=== PATIENT | female | born 1945 | race Caucasian/White ===

== ENCOUNTER 2020-08-21 12:04 | Outpatient (REF) | payer MEDICARE, SELFPAY | END 2020-08-21 12:05 | disposition home or self-care (01) | LOC: HO.LAB 12:04 | PROVIDERS: PCP Internal Medicine; Visit Provider Internal Medicine | DX: Z20.828 Contact with and (suspected) exposure to other viral communicable diseases (principal) | CPT/HCPCS: 87635 ==

== ENCOUNTER 2020-09-15 11:24 | Outpatient (REF) | payer MEDICARE, SELFPAY | END 2020-09-15 11:25 | disposition home or self-care (01) | LOC: HO.LAB 11:24 | PROVIDERS: Visit Provider Internal Medicine | DX: Z20.828 Contact with and (suspected) exposure to other viral communicable diseases (principal) | CPT/HCPCS: C9803; U0003 ==

== ENCOUNTER 2020-09-24 08:27 | Outpatient (REF) | payer MEDICARE, SELFPAY | END 2020-09-24 08:28 | disposition home or self-care (01) | LOC: HO.LAB 08:27 | PROVIDERS: PCP Internal Medicine; Visit Provider Internal Medicine | DX: Z20.828 Contact with and (suspected) exposure to other viral communicable diseases (principal) | CPT/HCPCS: C9803; U0003 ==

== ENCOUNTER 2020-10-21 09:35 | Outpatient (REF) | payer MEDICARE, SELFPAY | END 2020-10-21 09:36 | disposition home or self-care (01) | LOC: HO.LAB 09:35 | PROVIDERS: Visit Provider Internal Medicine | DX: Z20.828 Contact with and (suspected) exposure to other viral communicable diseases (principal) | CPT/HCPCS: C9803; U0003 ==

== ENCOUNTER 2020-11-19 13:52 | Outpatient (REF) | payer MEDICARE, SELFPAY | END 2020-11-19 13:53 | disposition home or self-care (01) | LOC: HO.LAB 13:52 | PROVIDERS: PCP Internal Medicine; Visit Provider Internal Medicine | DX: Z20.822 Contact with and (suspected) exposure to COVID-19 (principal) | CPT/HCPCS: 36415; C9803; U0003 ==

== ENCOUNTER 2020-12-01 14:02 | Outpatient (REF) | payer MEDICARE, SELFPAY ==
--- NOTE | 2020-12-01 14:05 | MM_ITS ---
EXAMINATION: MM SCREENING DIGITAL BREAST TOMOSYNTHESIS, BILATERAL CLINICAL INFORMATION: Screening. Asymptomatic. The lifetime risk of breast cancer based on the Tyrer-Cuzick Model is 2%. COMPARISON: Mammography: 11/26/2019, 09/19/2018, 05/23/2017 TECHNIQUE: Digital breast tomosynthesis is performed in both the craniocaudal and mediolateral oblique views along with computer-aided detection (CAD). Synthesized 2D images are generated from the tomosynthesis. FINDINGS: There are scattered areas of fibroglandular density (ACR BI-RADS breast composition Category b). There are no significant masses, abnormal calcifications, or other abnormalities. Parenchymal pattern is similar to prior studies. No significant changes. MM/MM tomosynthesis screening BI IMPRESSION: No mammographic evidence of malignancy. ASSESSMENT: BI-RADS 1: Negative RECOMMENDATION: Routine annual mammography screening. This patient's information was entered into a reminder system with a target due date for their next mammogram.
== END 2020-12-01 14:03 | disposition home or self-care (01) ==
LOC: HO.MAMMO 14:02
PROVIDERS: Visit Provider Internal Medicine
DX: Z12.31 Encounter for screening mammogram for malignant neoplasm of breast (principal)
CPT/HCPCS: 77063; 77067

== ENCOUNTER 2020-12-03 10:31 | Outpatient (REF) | payer MEDICARE, SELFPAY | END 2020-12-03 10:32 | disposition home or self-care (01) | LOC: HO.LAB 10:31 | PROVIDERS: PCP Internal Medicine; Visit Provider Internal Medicine | DX: Z20.822 Contact with and (suspected) exposure to COVID-19 (principal) | CPT/HCPCS: 36415; C9803; U0003 ==

== ENCOUNTER 2020-12-18 09:54 | Outpatient (REF) | payer MEDICARE, SELFPAY | END 2020-12-18 09:55 | disposition home or self-care (01) | LOC: HO.LAB 09:54 | PROVIDERS: Visit Provider Internal Medicine | DX: Z20.822 Contact with and (suspected) exposure to COVID-19 (principal) | CPT/HCPCS: 36415; C9803; U0003; U0005 ==

== ENCOUNTER 2021-09-22 10:25 | Outpatient (REF) | payer MEDICARE, SELFPAY ==
[2021-09-22 11:11] LABS: COVID-19 Test Negative (Negative)
== END 2021-09-22 10:26 | disposition home or self-care (01) ==
LOC: HO.LAB 10:25
PROVIDERS: PCP Internal Medicine; Visit Provider Internal Medicine
DX: Z20.822 Contact with and (suspected) exposure to COVID-19 (principal)
CPT/HCPCS: 36415; 87635; C9803

== ENCOUNTER 2021-12-11 15:25 | Outpatient (REF) | payer MEDICARE, SELFPAY ==
--- NOTE | ~2021-12-11 | MM_ITS ---
EXAMINATION: MM SCREENING DIGITAL BREAST TOMOSYNTHESIS, BILATERAL CLINICAL INFORMATION: Screening. Asymptomatic. The lifetime risk of breast cancer based on the Tyrer-Cuzick Model is 2%. COMPARISON: Mammography: 12/01/2020, 11/26/2019, 09/19/2018 TECHNIQUE: Digital breast tomosynthesis is performed in both the craniocaudal and mediolateral oblique views along with computer-aided detection (CAD). Synthesized 2D images are generated from the tomosynthesis. FINDINGS: There are scattered areas of fibroglandular density (ACR BI-RADS breast composition Category b). There are no significant masses, abnormal calcifications, or other abnormalities. Parenchymal pattern is similar to prior studies. There is no developing density or architectural abnormality. The axilla and skin contours are unremarkable. No significant changes. MM/MM tomosynthesis screening BI IMPRESSION: No mammographic evidence of malignancy. ASSESSMENT: BI-RADS 1: Negative RECOMMENDATION: Routine annual mammography screening. This patient's information was entered into a reminder system with a target due date for their next mammogram.
== END 2021-12-11 15:26 | disposition home or self-care (01) ==
LOC: HO.MAMMO 15:25
PROVIDERS: Visit Provider Internal Medicine
DX: Z12.31 Encounter for screening mammogram for malignant neoplasm of breast (principal)
CPT/HCPCS: 77063; 77067

== ENCOUNTER 2022-07-19 16:18 | Outpatient (REF) | payer MEDICARE, SELFPAY ==
[2022-07-19 20:18] LABS: Erythrocyte Sedimentation Rate 3 MM/HR (0-20)
[2022-07-19 21:19] LABS: Alanine Aminotransferase 6 U/L (0-31); Albumin Level 3.8 g/dL (3.5-5.0); Alkaline Phosphatase 69 U/L (39-117); Amylase 82 U/L (28-100); Anion Gap 15 (12-20); Aspartate Amino Transferase 16 U/L (5-31); Bilirubin Total 0.2 mg/dL (0.0-1.0); Blood Urea Nitrogen 11 mg/dL (9-16); C Reactive Protein 0.04 mg/dL (< or = 0.50); Calcium 8.9 mg/dL (8.4-10.2); Carbon Dioxide 27 mmol/L (22-29); Chloride 107 mmol/L (96-108); Estimated Glomerular Filt Rate 51; Glucose Random 107 mg/dL (60-115); Iron 46 mcg/dL (30-160); Lipase 30 U/L (8-78); Percent Iron Saturation 10 % (15-50); Potassium 6.4 mmol/L (3.3-5.1); Sodium 143 mmol/L (135-145); Total Iron Binding Capacity 459 mcg/dL (228-428); Total Protein 6.4 g/dL (6.5-8.0); Unsaturated Iron Binding 413 ug/dL
== END 2022-07-19 16:19 | disposition home or self-care (01) ==
LOC: HO.MANLDS 16:18
PROVIDERS: Visit Provider Internal Medicine
DX: R19.7 Diarrhea, unspecified (principal)
CPT/HCPCS: 36415; 80053; 82150; 83540; 83690; 85025; 85652; 86140

== ENCOUNTER 2022-07-21 08:59 | Outpatient (REF) | payer MEDICARE, SELFPAY | END 2022-07-21 09:00 | disposition home or self-care (01) | LOC: HO.LNP 08:59 | PROVIDERS: Visit Provider Physician Assistant | DX: Z13.89 Encounter for screening for other disorder (principal) | CPT/HCPCS: 87507 ==

== ENCOUNTER 2022-08-31 14:04 | Outpatient (REF) | payer MEDICARE, SELFPAY ==
[2022-08-31 17:54] LABS: MANUAL DIFF FLAG NO
[2022-08-31 18:08] LABS: Alanine Aminotransferase 8 U/L (0-31); Alkaline Phosphatase 73 U/L (39-117); Anion Gap 13 (12-20); Aspartate Amino Transferase 19 U/L (5-31); Bilirubin Total 0.3 mg/dL (0.0-1.0); Blood Urea Nitrogen 12 mg/dL (9-16); Calcium 9.2 mg/dL (8.4-10.2); Carbon Dioxide 25 mmol/L (22-29); Chloride 106 mmol/L (96-108); Cholesterol 186 mg/dL; Estimated Glomerular Filt Rate 52; Glucose Random 77 mg/dL (60-115); HDL Cholesterol 59 mg/dL; LDL Cholesterol Calculated 112 mg/dl; Potassium 4.1 mmol/L (3.3-5.1); Sodium 140 mmol/L (135-145); Total Protein 6.7 g/dL (6.5-8.0); Triglycerides 79 mg/dL
[2022-08-31 18:14] LABS: Basophils Absolute Auto 0.1 X10*3/uL (0.0-0.2); Basophils Percent Auto 0.9 % (0-2); Eosinophils Absolute Auto 0.1 X10*3/uL (0.0-0.4); Eosinophils Percent Auto 1.2 % (0-4); Hematocrit 29.7 % (37.0-47.0); Hemoglobin 9.3 g/dl (12.0-16.0); Imm Gran Abs Auto 0.01 X10*3/uL (0.00-0.03); Imm Gran Pct Auto 0.2 % (0.0-0.4); Lymphocytes Absolute Auto 1.7 X10*3/uL (1.2-4.9); Lymphocytes Percent Auto 26.2 % (20-40); Mean Corpuscular HGB Conc 31.3 g/dl (31.0-35.0); Mean Corpuscular Hemoglobin 25.4 pg (27.0-33.0); Mean Corpuscular Volume 81.1 fL (80.0-98.0); Mean Platelet Volume 11.8 fL (9.4-12.3); Monocytes Absolute Auto 0.7 X10*3/uL (0.1-1.2); Monocytes Percent Auto 10.4 % (2-11); Neutrophils Absolute Auto 3.9 x10*3/uL (2.0-8.3); Neutrophils Percent Auto 61.1 % (45-73); Platelet Count 160 X10*3/uL (160-400); Red Blood Count 3.66 X10*6/uL (4.20-5.50); Red Cell Distribution Width 18.6 % (11.0-16.0); White Blood Count 6.4 X10*3/uL (4.8-10.8)
== END 2022-08-31 14:05 | disposition home or self-care (01) ==
LOC: HO.MANLDS 14:04
PROVIDERS: Visit Provider Physician Assistant
DX: Z00.00 Encounter for general adult medical examination without abnormal findings (principal)
CPT/HCPCS: 36415; 80053; 80061; 85025

== ENCOUNTER 2025-03-27 12:00 | Outpatient (REF) | payer MEDICARE, SELFPAY ==
--- OUTSIDE RECORDS SUMMARY | 2025-03-27 13:04 | XMS_ITS | Continuity of Care Document ---
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) MDM MODERATE MUST MEET 2 OUT OF 3 ELEMENTS: PROBLEMS, DATA OR RISK ELEMENT 1: PROBLEMS ADDRESSED 1 OR MORE CHRONIC ILLNESS WITH EXACERBATION OR 2 OR MORE STABLE CHRONIC ILLNESSES OR 1 UNDIAGNOSED NEW PROBLEM OR 1 ACUTE ILLNESS W/SYMPTOMS OR 1 ACUTE COMPLICATED INJURY ELEMENT 2: DATA MUST MEET 1 OF 3 CATEGORIES CATEGORY 1: REVIEW OF PRIOR EXTERNAL NOTES, REVIEW OF RESULTS, ORDERING OF EACH TEST, ASSESSMENT REQUIRING INDEPENDENT HISTORIAN OR CATEGORY 2: INDEPENDENT INTERPRETATION OF TESTS BY ANOTHER PHYSICIAN OR SPECIALIST OR CATEGORY 3: DISCUSSION OF MGT OR TEST INTERPRETATION W/EXTERNAL PHYSICIAN OR SPECIALIST ELEMENT 3: RISK RISK OF COMPLICATIONS AND/OR MORBIDITY OR MORTALITY OF PATIENT MANAGEMENT PROVIDER MUST THOROUGHLY DOCUMENT EACH ELEMENT THAT IS COVERED [email or web address] Not available 03/27/2025 11:59:18 Plan of Treatment Reminders Order Date Submit Date Provider Last Modified By Organization Details Last Modified Time Details Appointments ANNUAL EXAM 2024 11:15A M DR DODGE Not available Not available Not available Lab ferritin, serum or plasma 2024 025 [facility], [address] [place] [address], [place], [id number], 03/27/2025 12:00:18 iron + total iron-bind ing capacity (TIBC), serum 2024 025 [facility], [address] [place] [address], [place], [address], 03/27/2025 12:00:18 vitamin B12, serum 2024 025 [facility], [address] [place] [address], [id number], 03/27/2025 12:00:18 C-reactiv e protein, quantitat satish, serum or plasma 2024 025 [facility], [address] [place] [address], [id number], 03/27/2025 12:00:18 CBC 2024 025 [facility], [address] [place] [address], [id number], 03/27/2025 12:00:18 CMP, serum or plasma 2024 025 [facility], [address] [place] [address], [id number], 03/27/2025 12:00:18 ESR (erythroc yte sedimenta tion rate), blood 2024 025 [facility], [address] [place] [address], [id number], 03/27/2025 12:00:18 magnesium , serum or plasma 2024 025 [facility], [address] [place] [address], [id number], 03/27/2025 12:00:18 Referral None recorded. Procedures None recorded. Surgeries None recorded. Imaging None recorded. Medication Orders meloxicam 15 mg tablet 2024 025 [id number], [address] [place], [address], 03/27/2025 11:54:17 terbinafi ne HCl 250 mg tablet 2024 025 [id number], [address] [place], [address], 03/27/2025 11:54:16 Patient TargetsNo targets recorded. Patient InstructionsNo instructions recorded. Reason for Referral None Reported. Problems Name Problem SNOMED Code Status Onset Date Resolution Date Notes Provider Name and Address Organization Details Recorded Time Osteopen ia 384687303 Active 2018 Not Available [facility] 2 17:48:28 Hyperlip idemia 02042568 Active 2018 Not Available [facility] 17:48:28 Atypical chest pain 465888031 Completed 201803/16/2019 Snehal Oakes NP, [address] [place], [address], [facility] 9 15:19:44 Chronic sinusiti s 36554660 Completed 201803/16/2019 MASON KUMAR [address] [place], [address], [facility] 3 13:54:51 Anorexia nervosa 41441987 Completed 201803/16/2019 Snehal Oakes NP, [address] [place], [address], [facility] 9 15:19:41 History of tubal ligation 777721575 Completed 201803/16/2019 Snehal Oakes NP, S [address] [place] [address], [address], [facility] 9 15:19:48 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 2018 Not Available [facility] 17:48:28 Allergic rhinitis 62772891 Active 2018 Not Available [facility] 17:48:28 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 85553741352 99683 Active 2021 Not Available [facility] 2 17:48:28 Disturba nce of attentio n 88859097 Active 2021 Not Available [facility] 2 17:48:28 Eczema 88551098 Active 2021 Not Available [facility] 2 17:48:28 Gastroes ophageal reflux disease without esophagi tis 246165404 Active 2021 Not Available [facility] 2 17:48:28 Pain in right hand 32726393040 9109 Active 2021 Not Available [facility] 2 17:48:28 Closed fracture of distal phalanx of finger 29269617 Active 2021 Not Available [facility] 2 17:48:28 Vertigo 589920378 Active 2021 Not Available [facility] 2 17:48:28 Pain of left shoulder joint 99009507266 694134 Active 2022 MASON KUMAR [address] [place], [address], [facility] 3 11:04:24 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 620720005 Active 2022 MASON KUMAR [address] [place], [address], [facility] 3 10:29:39 Pain of left knee region 80424514001 4109 Active 2022 MASON KUMAR [address] [place], [address], [facility] 3 14:06:54 Cough 04424929 Active 2022 MASON KUMAR [address] [place], [address], [facility] 3 14:08:03 Pneumoni a 142271747 Active 2022 MASON KUMAR [address] [place], [address], [facility] 3 11:24:37 Sinus headache 0325055 Active 2022 AMSON KUMAR [address] [place], [address], [facility] 3 13:54:43 Chronic sinusiti s 60973521 Active 2022 MASON KUMAR [address] [place], [address], [facility] 3 13:54:51 Cervical radiculo vin 72809423 Active 2022 MASON KUMAR [address] [place], [address], [facility] 3 16:31:22 Spasmodi c torticol lis 41761572 Active 2022 MASON KUMAR [address] [place] [address], [address], [facility] 3 16:31:49 Constipa tion 74255574 Active 2023 MASON KUMAR [address] [place] [address], [address], [facility] 4 14:02:34 Hyponatr emia 76069457 Active 2023 MASON KUMAR [address] [place] [address], [address], [facility] 4 16:45:42 Diarrhea 64979967 Active 2023 MASON KUMAR [address] [place] [address], [address], [facility] 4 16:46:01 Pain in left foot 62867463851 9107 Active 2023 MASON KUMAR [address] [place] [address], [address], [facility] 4 09:20:37 Dyspnea 643229302 Active [address]UMAR [address] [place] [address] [place], [address], [facility] 5 13:43:55 Chronic rhinitis 81117589 Active 2024 MASON KUMAR [address] [place], [address], [facility] 5 13:49:01 Recurren t acute pansinus itis Active 2024 MASON KUMAR [address] [place] [address], [address], [facility] 5 11:45:39 Generali zed pruritus 035057351 Active 2024 Karsten Dodge DO [address] [place] [address], [address], [facility] 5 11:46:19 Onychomy cosis of toenails 306076454 Active 2024 Karsten Dodge DO [address] [place] [address], [address], [facility] 5 11:49:03 Bilatera l cramp of muscle of lower limbs 09574809849 117689 Active 2024 Karsten Dodge DO [address] [place] [address], [address], [facility] 5 11:50:08 Generali zed osteoart hritis 446208696 Active 2024 Karsten Dodge DO [address] [place] [address], [address], [facility] 5 11:53:01 Problem Notes None recorded. Procedures Surgical History Date Name Laterality Status Provider Name and Address Organization Details Recorded Time 017 Most Recent Mammogram completed Misty [facility] 01/23/2019 15:43:46 016 Date of Last Pap Smear completed [facility] 01/23/2019 15:42:22 016 bone density scan completed Misty [facility] 01/23/2019 15:44:21 015 Colonoscopy completed Misty [facility] 01/23/2019 15:41:42 tonsillectomy completed Snehal harris NP, [address] [place], [address], [facility] 03/16/2019 15:08:47 Imaging Results None recorded. Procedure Notes None recorded. Medical Equipment None Reported. Allergies Allergen ID Allergen Name Allergen Category Reaction Reaction Severity Criticality Documentation Date Start Date Code Code System Note Provider Name and Address Organization Details Recorded Time 2923 amoxicill in medicatio n vomiting Not available Not available 01/23/2019 723 [facility] 10:[facility]12 6627 colchicin e medicatio n dizziness Not available Not available 02/15/2023 2683 RxNorm MASON KUMAR [address] [place], [address], [facility] 3 14:09:48 6668 doxycycli ne Not available nausea Not available Not available 02/23/2023 3640 RxNorm nause a; vomit ing MASON KUMAR [address] [place], [address], [facility] 3 14:01:33 Medications Name Sig Start Date Stop Date Status Note LastModified by Organization Details LastModified Time bupropion HCl SR 150 mg tablet,12 hr sustained-r elease TAKE 1 TABLET BY MOUTH EVERY DAY FOR 30 DAYS 03/16 completed Not Available Not Available Not Available neomycin-po lymyxin-hyd rocort 3.5 mg/mL-10,00 0 unit/mL-1 % ear solution 09/01 completed Not Available Not Available Not Available azithromyci n 250 mg tablet TAKE 2 TABLETS BY MOUTH TODAY, THEN TAKE 1 TABLET DAILY FOR 4 DAYS DIRECTED 03/27 completed Not Available Not Available Not Available meloxicam 15 mg tablet Take 1 tablet every day by oral route with meals for 30 days. 2024 active Not Available Not Available Not Avai lable prednisone 20 mg tablet 03/16 completed Not Available Not Available Not Available meclizine 12.5 mg tablet TAKE 1 TABLET BY MOUTH THREE TIMES A DAY NEEDED FOR 14 DAYS 02/15 completed Not Available Not Available Not Available ciprofloxac in 500 mg tablet Take 1 tablet every 12 hours by oral route for 5 days. 03/16 completed Not Available Not Available Not Available triamcinolo ne acetonide 0.1 % topical cream APPLY THIN COAT TO AFFECTED AREA TWICE A DAY active Not Available Not Available No t Available ketorolac 0.5 % eye drops PLACE 1 DROP THREE TIMES A DAY TO SURGICAL EYE FOR THREE WEEKS FOLLOWING SURGERY 03/27 completed Not Available Not Available Not Available terbinafine HCl 250 mg tablet Take 1 tablet every day by oral route for 30 days. 2024 active Not Available Not Available Not Avai lable amoxicillin 875 mg tablet TAKE ONE TABLET TWICE A DAY UNTIL FINISHED. START 3 DAYS PRE-OP. 10/17 completed Not Available Not Available Not Available betamethaso ne valerate 0.1 % topical cream APPLY SPARINGLY TO AFFECTED AREA EVERY DAY active Not Available Not Available No t Available ciprofloxac in 0.3 % eye drops USE 4 DROPS INTO RIGHT EAR TWICE A DAY FOR 5 DAYS 03/09 completed Not Available Not Available Not Available baclofen 10 mg tablet TAKE 1 TABLET BY MOUTH THREE TIMES A DAY NEEDED FOR 14 DAYS 03/20 completed Not Available Not Available Not Available pantoprazol e 40 mg tablet,brent yed release TAKE 1 TABLET BY MOUTH EVERY DAY 03/27 completed Not Available Not Available Not Available montelukast 10 mg tablet TAKE 1 TABLET BY MOUTH EVERY DAY DIRECTED active Not Available Not Available No t Available methylpredn isolone 4 mg tablets in a dose pack TAKE 6 TABLETS ON DAY 1 DIRECTED ON PACKAGE AND DECREASE BY 1 TAB EACH DAY FOR A TOTAL OF 6 DAYS 03/27 completed Not Available Not Available Not Available albuterol sulfate HFA 90 mcg/actuati on aerosol inhaler INHALE 2 PUFFS EVERY 4 HOURS BY INHALATIO N ROUTE. 03/16 completed Not Available Not Available Not Available colchicine 0.6 mg tablet TAKE 2 TABLETS BY MOUTH ONCE, THEN 1 TABLET 1 HOUR LATER ONCE. 02/15 completed Not Available Not Available Not Available doxycycline hyclate 100 mg tablet TAKE 1 TABLET BY MOUTH TWICE A DAY FOR 10 DAYS 03/16 completed Not Available Not Available Not Available amoxicillin 875 mg-haiisabeliu m clavulanate 125 mg tablet TAKE 1 TABLET BY MOUTH EVERY 12 HOURS FOR 10 DAYS 03/27 completed Not Available Not Available Not Available oxycodone 5 mg tablet 07/24 completed Not Available Not Available Not Available neomycin-po lymyxin-hyd rocort 3.5 mg-10,000 unit/mL-1 % ear drops,susp 09/01 completed Not Available Not Available Not Available Boostrix Tdap 2.5 Lf unit-8 mcg-5 Lf/0.5 mL intramuscul ar suspension 03/16 completed Not Available Not Available Not Available Zyrtec 10 mg capsule Take 1 capsule every day by oral route. active Not Available Not Available No t Available azelastine 137 mcg-flutica sone 50 mcg/spray nasal spray [place] 1 spray twice a day by intranasa l route as directed for 14 days. 02/23 completed Not Available Not Available Not Available Fluzone High-Dose 0907-7679 (PF) 180 mcg/0.5 mL intramuscul ar syringe 03/16 completed Not Available Not Available Not Available Fluzone High-Dose 2018- (PF) 180 mcg/0.5 mL intramuscul ar syringe 09/01 completed Not Available Not Available Not Available Fluad Quad 2582-9527(6 5yr up)(PF) 60 mcg (15 mcg x 4)/0.5mL IM syringe 09/01 completed Not Available Not Available Not Available Vitals Date Recorded Body height Body mass index (BMI) Body weight Heart rate Oxygen saturation Oxygen saturation in Arterial blood by Pulse oximetry Systolic blood pressure Diastolic blood pressure Provider Name and Address Organization Details Last Updated DateTime 5 163.83 cm 21.2 kg/m2 80933.5 6 g 69 /min 99 % 99 % 112 mm[Hg] 64 mm[Hg] Karolina Marsh [facility] 5 11:11:10 Social History Question Answer Notes LastModified by Organizat ion Details LastModified Time Tobacco Smoking Status Former Smoker JAREK Malone [facility] 01/23/2019 15:36:05 What Was The Date Of Your Most Recent Tobacco Screening? 03/27/2025 [email or web address] Information not available 03/27/2025 How Many Years Have You Smoked Tobacco? 35 minnie Information not available 03/16/2019 Sex: Unknown Functional Status Question Answer Note LastModified by Organization D etails LastModified Time Do you or have you ever used any other forms of tobacco or nicotine? No [email or web address] Information not available 03/09/2022 Mental Status None recorded. Family History Relationship Description Onset Age of this Age Resolved Age Notes LastModified by Organization Details LastModified Time Father Carcinoma of prostate 71 mets to bone [email or web address] Not available 03/16/2019 15:06:00 Mother Congestive heart failure 67 [email or web address] Not available 2018 15:37:35 Mother Colitis [email or web address] Not available 01/23/2019 15:37:40 Mother Disorder of cardiovascul ar system [email or web address] Not available 2018 15:38:12 Mother Rheumatoid arthritis [email or web address] Not available 2018 15:38:31 Sister Polyp of colon [email or web address] Not available 2018 15:38:22 Medical History Condition Response Allergies/Hayfever Y Coronary Artery Disease N Gout N Blood Diseases N Hyperthyroidism N Breast Cancer N Blood Transfusion N Thyroid Problems N Depression N COPD N Hypothyroidism N Lung Disease N GI Problems N Anemia N Difficulty Swallowing N Anesthesia Complications N Mental Illness N Anxiety Disorder N Diabetes N Obesity N Arthritis N Mental Disorder N Congestive Heart Failure (CHF) N Cancer N Stroke N Abuse/Domestic Violence N Diverticulitis N Asthma N Bladder or Kidney Problems N Reflux/GERD N Liver Disease N Heart Disease N Pulmonary Embolism N Chronic Ear Infections N Chicken Pox Y Osteoporosis Y Kidney Disease N Gynecological History Statement/Question Response Date of Last Pap Smear 08/17/2016 Most Recent Mammogram 05/24/2017 Obstetrics History GPAL:G 2 P 2 0 0 0 Type Value Full Term 2 Total 2 Immunizations Vaccine Type Date Status Note Provider Nam e and Address Organization Details Recorded Time COVID-19 vaccine, vector-nr, rS-ChAdOx1, PF, 0.5 mL 1 completed Not Available [facility] 06/29/2023 11:30:08 COVID-19 vaccine, vector-nr, rS-ChAdOx1, PF, 0.5 mL 1 completed Not Available [facility] 06/29/2023 11:30:08 COVID-19, mRNA, LNP-S, PF, 30 mcg/0.3 mL dose 2 completed Not Available [facility] 06/29/2023 11:30:08 Influenza, split virus, quadrivalent, preservative 1 completed Not Available [facility] 06/29/2023 11:30:08 zoster recombinant 1 completed Not Available [facility] 06/29/2023 11:30:08 zoster recombinant 1 completed Not Available [facility] 06/29/2023 11:30:08 SARS-COV-2 (COVID-19) vaccine, UNSPECIFIED 4 completed Santi avina [facility] 07/13/2024 07:18:22 pneumococcal polysaccharide PPV23 2 completed Not Available [facility] 06/29/2023 11:30:08 Pneumococcal conjugate PCV 13 5 completed Not Available [facility] 06/29/2023 11:30:08 Td (adult) 8 completed Not Available [facility] 06/29/2023 11:30:08 Tdap 8 completed Not Available [facility] 06/29/2023 11:30:08 Past Encounters Encounter ID Performer Location Encounter Start Date Encounter Closed Date Diagnosis/Indication Diagnosis SNOMED-CT Code Diagnosis ICD10 Code Diagnosis Note [id number] DO [facility] [address] [facility],[place] [address] 03/27/2025 11:02:04 03/27/2025 12:49:52 Active or passive immunization 294635622 Z23 Hyperlipidemia 11756464 E78.2 Well adult 087120433 Z00 .00 actually dong great and is feeling quite well[place] r issues except for the itching sensation Generalized pruritus 276 507481 L29.9 will need lab work Onychomyco sis of toenails 075987724 B35.1 Bilateral cramp of muscle of lower limbs 4091822347 0589946 R25.2 Generalize d osteoarthritis 513407109 M15.9 Health Concerns Section Related Observation LastModified by Organization Detai ls LastModified Time None Recorded Concern Status LastModified by Organization Details LastModified Time None Recorded Payers Encounter Date Sequence Insurance Name Policy Number Policy Alaniz Covered Member ID Alaniz Member ID Guarantor Name 03/27/2025 1 [facility] [facility]: MEDICARE PPO BLUE (MEDICARE REPLACEMENT PPO) [id number] Analy Hummel [id number] Analy Hummel Notes Date Note Type Note Provider Name and Address Organization Details Recorded Time 03/27/20 25 text/htm l Annual WellnessReported bypatient.Diet and Nutrition:healthy diet Fracture Risk:no history of fractures; no recent explained fracture; no sudden unexplained fractures; no previous musculoskeletal injuries Physical Activity:exercises on a regular basis; recent increase in physical activity; good physical condition Additional Lifestyle Factors:no tobacco use; no alcohol intake; stopped drinking alcohol Depression Risk:never feels sad, empty, or tearful; no loss of interest in activities; no significant changes in weight; no sleep disturbances or insomnia; no agitation; no loss of energy; no feelings of worthlessness or guilt; no thoughts of suicide; no history of depression; no history of mood disorders Hearing:no loss of hearing Vision:no vision problemsCare Management - HyperlipidemiaReported bypatient.Control:usually well controlled; improving; at goal Complications:no coronary artery disease; no heart attack; no cardiovascular disease; no pancreatitis; no stroke Karsten Dodge, DO [address] [place], [address], [facility] 03/27/2025 11:59:29 OBGyn Episode No OBEpisode recorded.
--- OUTSIDE RECORDS SUMMARY | 2025-03-27 13:05 | XMS_ITS | Data Portability ---
Author Organization [facility], Home Service Address [address] [place] [address] Assessment Encounter Date Assessment Date Assessment LastModified by Organization Details LastModified Time 03/16/2023 03/16/2023 The patient denies little pleasure in activities they find enjoyable, feeling depressed, difficulties sleeping, feeling tired or having little energy, change in appetite, feeling guilty, overwhelmed or unmotivated. The patient denies suicidal ideation, thoughts of hurting themselves or others. Their mood is appropriate, they show good judgement and clear understanding of the conversation. They are orientated to time, place and person. They are not expressing any concerning thoughts or actions that would need further investigation and treatment for mental health. The patient denies recent falls or recurrent falls. Denies instability, weakness, abnormal gait, or difficulties with movement. The patient wears correct, supportive shoes and is not otherwise severely visually impaired. The patient is full weight bearing and if using the assistance of a cane or walker feels supported and stable with the use of such devices. All medical conditions have been taken into account that may pose a risk for the patient for falls. Home devonte, carpets and/or rugs do not pose a challenge for the patient. The patient has been educated about the use of vitamin D supplementation for bone health and prevention of hypotensive episodes that may increase risk for fall. All question and concerns were answered to the patient's satisfaction. [email or web address] Not available 03/16/2023 14:13:22 03/27/2025 03/27/2025 [address] [place] [address] (SOFTWARE MAINTENANCE ENGINEER) MDM MODERATE MUST MEET 2 OUT OF [...] Lab ferritin, serum or plasma 2024 025 [facility], [address] [place] [address], [address], 03/27/2025 12:00:18 iron + total iron-bind ing capacity (TIBC), serum 2024 025 [facility], [address] [place] [address], [address], 03/27/2025 12:00:18 vitamin B12, serum 2024 025 [facility], [address] [place] [address], [address], 03/27/2025 12:00:18 C-reactiv e protein, quantitat satish, serum or plasma 2024 025 [facility], [address] [place] [address], [address], 03/27/2025 12:00:18 CBC 2024 025 [facility], [address] [place] [address], [address], 03/27/2025 12:00:18 CMP, serum or plasma 2024 025 [facility], [address] [place] [address], [place], [address], 03/27/2025 12:00:18 ESR (erythroc yte sedimenta tion rate), blood 2024 025 [facility], [address] [place] [address], [address], 03/27/2025 12:00:18 magnesium , serum or plasma 2024 025 [facility], [address] [place] [address], [address], 03/27/2025 12:00:18 CMP, serum or plasma 2023 024 [facility], [address] [place] [address], [address], 03/20/2024 14:05:29 CBC w/ auto diff 2023 024 [facility], [address] [place] [address], [address], 03/20/2024 14:05:28 lipid panel, blood 2023 024 [facility], [address] [place] [address], [address], 03/20/2024 14:05:29 TSH + free T4, serum 2023 024 [facility], [address] [place] [address], [address], 03/20/2024 14:05:29 vitamin D, 25-hydrox y, total, serum 2023 024 [facility], [address] [place] [address], [address], 03/20/2024 14:05:29 hemoglobi n A1c, QN, blood 2023 024 [facility], [address], [place], [address], 03/20/2024 14:05:29 Referral None recorded. Procedures None recorded. Surgeries None recorded. Imaging None recorded. Medication Orders meloxicam 15 mg tablet 2024 025 [facility]acy #2024, [address] [place], [address], 03/27/2025 11:54:17 terbinafi ne HCl 250 mg tablet 2024 025 [facility] [address] [place], [address], 03/27/2025 11:54:[address] 10 mg tablet 2024 025 [facility] [address] [place], [address], 02/01/2025 13:49:38 baclofen 10 mg tablet 2022 023 [email or web address] [facility] [address] [place], [address], 03/20/2024 13:26:18 Patient TargetsNo targets recorded. Patient Instructions Encounter Date Encounter Id Patient Instructions Last Modified By Organization Details Last Modified Time 03/16/2023 [id number] advance care planning: care instructions [facility] Not available 03/16/2023 14:13:51 Reason for Referral None Reported. Results Created Date Observation Date Name Description Value Unit Range Abnormal Flag Note LastModifiedBy Organization Detail LastModifiedTime 02/22/2002/21/2023 XR, chest , 2 view No observ ation record ed. [email or web address] [facility] [address] [address], [place], [address], 02/22/2023 12:22:31 09/20/20 24 09/19/2024 XR, foot, 3 or more view No observ ation record ed. [email or web address] [address], [address], 09/21/2024 10:53:48 02/19/20 25 02/18/2025 , john davis gram No observ ation record ed. [address], [address], 02/18/2025 13:55:35 Result Notes None recorded. Problems Name Problem SNOMED Code Status Onset Date Resolution Date Notes Provider Name and Address Organization Details Recorded Time Osteopen ia 367945536 Active 2018 Not Available [facility] 2 17:48:28 Hyperlip idemia 01622884 Active 2018 Not Available [facility] 2 17:48:28 Atypical chest pain 933044790 Completed 201803/16/2019 Snehal Oakes NP, [address] [place], [address], [facility] 9 15:19:44 Chronic sinusiti s 17012584 Completed 201803/16/2019 MASON KUMAR [address] [place], [address], [facility] 3 13:54:51 Anorexia nervosa 03576167 Completed 201803/16/2019 Snehal Oakes NP, [address] [place], [address], [facility] 9 15:19:41 History of tubal ligation 225616196 Completed 201803/16/2019 Snehal Oakes NP, [address] [place], [address], [facility] 9 15:19:48 Scoliosi s deformit y of spine 986908981 Active 2018 Not Available [facility] 2 17:48:28 Allergic rhinitis 20853924 Active 2018 Not Available [facility] 2 17:48:28 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 97503667242 62964 Active 2021 Not Available [facility] 2 17:48:28 Disturba nce of attentio n 25499019 Active 2021 Not Available [facility] 2 17:48:28 Eczema 23022813 Active 2021 Not Available [facility] 2 17:48:28 Gastroes ophageal reflux disease without esophagi tis 533232501 Active 2021 Not Available [facility] 2 17:48:28 Pain in right hand 48942187809 9109 Active 2021 Not Available [facility] 2 17:48:28 Closed fracture of distal phalanx of finger 00491586 Active 2021 Not Available [facility] 2 17:48:28 Vertigo 599700084 Active 2021 Not Available [facility] 2 17:48:28 Pain of left shoulder joint 41339348203 644772 Active 2022 MASON KUMAR [address] [place], [address], [facility] 3 11:04:24 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 Active 2022 MASON KUMAR [address] [place], [address], [facility] 3 10:29:39 Pain of left knee region 64726429360 4109 Active 2022 MASON KUMAR [address] [place], [address], [facility] 3 14:06:54 Cough 27419358 Active 2022 MASON KUMAR [address] [place], [address], [facility] 3 14:08:03 Pneumoni a 566411492 Active 2022 MASON KUMAR [address] [place], [address], [facility] 3 11:24:37 Sinus headache 4563227 Active 2022 MASON KUMAR [address] [place], [address], [facility] 3 13:54:43 Chronic sinusiti s 38154056 Active 2022 MASON KUMAR [address] [place] [address], [address], [facility] 3 13:54:51 Cervical radiculo vin 28095901 Active 2022 MASON KUMAR [address] [place] [address], [address], [facility] 3 16:31:22 Spasmodi c torticol lis 46369903 Active 2022 MASON KUMAR [address] [place] [address], [address], [facility] 3 16:31:49 Constipa tion 41697351 Active 2023 MASON KUMAR [address] [place] [address], [address], [facility] 4 14:02:34 Hyponatr emia 48836777 Active 2023 MASON KUMAR [address] [place] [address], [address], [facility] 4 16:45:42 Diarrhea 69710796 Active 2023 MASON KUMAR [address] [place] [address], [address], [facility] 4 16:46:01 Pain in left foot 62731207421 9107 Active 2023 MASON KUMAR [address] [place] [address], [address], [facility] 4 09:20:37 Dyspnea 834111372 Active 2024 MASON KUMAR [address] [place], [address], [facility] 5 13:43:55 Chronic rhinitis 61057401 Active 2024 MASON KUMAR [address] [place], [address], [facility] 5 13:49:01 Recurren t acute pansinus itis Active 2024 MASON KUMAR [address] [place] [address], [address], [facility] 5 11:45:39 Generali zed pruritus 049676848 Active 2024 Karsten Dodge DO [address] [place] [address], [address], [facility] 5 11:46:19 Onychomy cosis of toenails 921050809 Active 2024 Karsten Dodge DO [address] [place] [address], [address], [facility] 5 11:49:03 Bilatera l cramp of muscle of lower limbs 19397449780 275855 Active 2024 Karsten Dodge DO [address] [place] [address], [address], [facility] 5 11:50:08 Generali zed osteoart hritis 318735287 Active 2024 Karsten Dodge DO [address] [place] [address], [address], [facility] 5 11:53:01 Problem Notes None recorded. Procedures Surgical History Date Name Laterality Status Provider Name and Address Organization Details Recorded Time 017 Most Recent Mammogram completed Misty James [facility] 01/23/2019 15:43:46 016 Date of Last Pap Smear completed Misty [facility] 01/23/2019 15:42:22 016 bone density scan completed Misty James [facility] 01/23/2019 15:44:21 015 Colonoscopy completed Misty [facility] 01/23/2019 15:41:42 tonsillectomy completed Snehal harris NP, S [address] [place], [address], [facility] 03/16/2019 15:08:47 Imaging Results Imaging Date Name Status LastModified by Organization Details LastModified Time 02/21/2023 XR, chest, 2 view completed [email or web address] [address], [address], 02/22/2023 12:22:31 09/19/2024 XR, foot, 3 or more view completed [email or web address] [address], [address], 09/21/2024 10:53:48 02/18/2025 US, echocardiogram completed BETTY [address], [address], 02/18/2025 13:55:35 Procedure Notes None recorded. Medical Equipment None Reported. Allergies Allergen ID Allergen Name Allergen Category Reaction Reaction Severity Criticality Documentation Date Start Date Code Code System Note Provider Name and Address Organization Details Recorded Time 2923 amoxicill in medicatio n vomiting Not available Not available 01/23/2019 723 RxNorm Gaviota avina [facility] 0 10:48:12 6627 colchicin e medicatio n dizziness Not available Not available 02/15/2023 2683 RxNorm MASON KUMAR [address] [place], [address], [place] [facility] 3 14:09:48 6668 doxycycli ne Not available nausea Not available Not available 02/23/2023 3640 RxNorm nause a; vomit ing MASON KUMAR [address] [place], [address], [facility] 14:01:33 Medications Name Sig Start Date Stop [...] Available Not Available Not Available amoxicillin 875 mg-potassiu m clavulanate 125 mg tablet TAKE 1 [...] 137 mcg-flutica sone 50 mcg/spray nasal spray [place] 1 spray twice a day by intranasa l route as directed for 14 days. 02/23 completed Not Available Not Available Not Available Fluzone High-Dose 6139-5171 (PF) 180 mcg/0.5 mL intramuscul ar syringe 03/16 completed Not Available Not Available Not Available Fluzone High-Dose 2019-20 (PF) 180 mcg/0.5 mL intramuscul ar syringe 09/01 completed Not Available Not Available Not Available Fluad Quad (6 5yr up)(PF) 60 mcg (15 mcg x 4)/0.5mL IM syringe 09/01 completed Not Available Not Available Not Available Vitals Date Recorded Heart rate Oxygen saturation Oxygen saturation in Arterial blood by Pulse oximetry Systolic blood pressure Diastolic blood pressure Provider Name and Address Organization Details Last Updated DateTime 3 77 /min 99 % 99 % 112 mm[Hg] 54 mm[Hg] Maria E Froilan [facility] 3 13:36:53 Date Recorded Body weight Heart rate Oxygen saturation Oxygen saturation in Arterial blood by Pulse oximetry Systolic blood pressure Diastolic blood pressure Provider Name and Address Organization Details Last Updated DateTime 3 77101.2 g 59 /min 99 % 99 % 110 mm[Hg] 62 mm[Hg] Ella Frey [facility] 3 16:16:57 Date Recorded Body height Body mass index (BMI) Body weight Systolic blood pressure Diastolic blood pressure Provider Name and Address Organization Details Last Updated DateTime 03/20/2024 163.83 cm 21.4 kg/m2 42386.51 g 118 mm[Hg] 74 mm[Hg] Amber Robin [facility] 4 13:29:33 Date Recorded Body height Body mass index (BMI) Body weight Systolic blood pressure Diastolic blood pressure Provider Name and Address Organization Details Last Updated DateTime 02/01/2025 163.83 cm 21.3 kg/m2 54530.64 g 90 mm[Hg] 58 mm[Hg] Ale Santana [facility] 5 13:32:28 Date Recorded Body height Body mass index (BMI) Body weight Heart rate Oxygen saturation Oxygen saturation in Arterial blood by Pulse oximetry Systolic blood pressure Diastolic blood pressure Provider Name and Address Organization Details Last Updated DateTime 5 163.83 cm 21.2 kg/m2 35799.5 6 g 69 /min 99 % 99 % 112 mm[Hg] 64 mm[Hg] Karolina De Jesus [facility] 5 11:11:10 Social History Question Answer Notes LastModified by Organizat ion Details LastModified Time Tobacco Smoking Status Former Smoker Misty Jacob avina [facility] 01/23/2019 15:36:05 What Was The Date Of Your Most Recent Tobacco Screening? 03/27/2025 [email or web address] Information not available 03/27/2025 How Many Years Have You Smoked Tobacco? 35 [email or web address] Information not available 03/16/2019 Sex: Unknown Functional [...] Carcinoma of prostate 73 mets to bone [email or web address] Not available 03/16/2019 15:06:00 Mother Congestive heart [...] N Blood Transfusion N Thyroid Problems N Hypothyroidism N COPD N Depression N Lung Disease N GI Problems N [...] Organization Details Recorded Time COVID-19 vaccine, vector-nr, rS-LizethdOx1, PF, 0.5 mL 1 completed Not Available [facility] 06/29/2023 11:30:08 COVID-19 vaccine, vector-nr, rS-ChAdOx1, PF, 0.5 mL 1 completed Not Available [facility] 06/29/2023 11:30:08 COVID-19, mRNA, LNP-S, PF, 30 mcg/0.3 mL dose 2 completed Not Available [facility] 06/29/2023 11:30:08 Influenza, split virus, quadrivalent, preservative 1 completed Not Available [facility] 06/29/2023 11:30:08 zoster recombinant 1 completed Not Available [facility] 06/29/2023 11:30:08 zoster recombinant 1 completed Not Available [facility] 06/29/2023 11:30:08 SARS-COV-2 (COVID-19) vaccine, UNSPECIFIED 4 completed [facility] 07/13/2024 07:18:22 pneumococcal polysaccharide PPV23 2 completed Not Available [facility] 06/29/2023 11:30:08 Pneumococcal conjugate PCV 13 5 completed Not Available [facility] 06/29/2023 11:30:08 Td (adult) 8 completed Not Available [facility] 06/29/2023 11:30:08 Tdap 8 completed Not Available [facility] 06/29/2023 11:30:08 Past Encounters Encounter ID Performer Location Encounter Start Date Encounter Closed Date Diagnosis/Indication Diagnosis SNOMED-CT Code Diagnosis ICD10 Code Diagnosis Note DO [facility] [address] [facility],[place] [address] 03/16/2019 14:46:14 03/19/2019 08:49:30 Hyperlipidemia 04100994 E78.2 good HDL, no meds Scoliosis deformity of spine 987238409 M41.9 Osteopenia 078096173 M85 .80 up to date bone density Allergic rhinitis 227589 04 J30.1 Zyrtec Screening procedure 2013 6549 Z13.9 Vitamin D deficiency 347 01180 E55.9 Adult [facility] th examination 685045035 Z00.00 [id number] Karsten Chava oDdge [facility] [address] [facility] [address], [place] [address] 11/20/2019 11:40:42 11/20/2019 12:37:34 Adult health examination 032627587 Z00.00 Hypercholesterolemia 136 87062 E78.00 Allergic rhinitis 813586 04 J30.9 long detailed instructio ns re local treatmnt Osteoporosis 18869565 M8 1.0 [place] [id number] Karsten Dodge [facility] [address] [facility] [address],[place] [address] 09/01/2020 10:41:41 09/01/2020 11:39:37 Allergic rhinitis 72423566 J30.9 longstandi ng hx of sinus problems Benign par oxysmal positional vertigo 698899708 H81.13 sounds like patient has BPPV, acts up when she does yoga will fu after she sees surgeon and gets CT results [id number] Karsten Dodge [facility] Internal [address],[place] [address] 10/06/2020 14:49:29 10/06/2020 16:42:47 Pre-surgery evaluation 785466748 Z01.818 based on history and physical evaluation , the patient is cleared for surgery [id number] Karsten Dodge [facility] Internal [facility] [address] [facility],[place] [address] 03/03/2021 13:23:58 03/03/2021 14:07:51 Active or passive immunization 840814558 Z23 sent in script Adult [facility] examination 172440438 Z00.00 BP excellent Screening for cardiovascular system disease 358238517 Z13.6 will recheck labs Allergic rhinitis 255122 04 J30.9 longstandi ng hx of sinus problems Benign par oxysmal positional vertigo 766868666 H81.13 sounds like patient has BPPV, acts up when she does yoga [id number] Karsten Dodge [facility] [address] [facility], [facility] [place] [address] 07/03/2021 09:40:41 07/03/2021 11:14:30 Constipation 24676165 K59.00 fu with GI, would like her to have repeat colonoscop y given bowel changes and family history Edema of l ower extremity 972344475 R60.0 will fu with US r/o venous insufficie ncy or vascular congestion [id number] Karsten Dodge [facility] Medicine [address] [facility] [place] [address] 07/24/2021 10:01:55 07/28/2021 14:19:30 Pain of left shoulder joint 7347788576 8193734 M25.512 will start with XR left shoulderwi ll fu with MRI [id number] Karsten Dodge [facility] [address] [facility],[place] [address] 03/09/2022 13:26:34 03/10/2022 15:50:03 Active or passive immunization 975725589 Z23 sent in script for patient Adult heal th examination 968930586 Z00.00 BP excellent today Bilateral vestibular neuronitis of inner ears 1607992092 200254 H81.23 probably related to her inner ear Disturbanc e of attention 45422079 R41.840 discussed meds Eczema 45481228 L20.89 will send in a cream for her facecan use her old betamethas one script for her torso for irritant dermatitis Gastroesop hageal reflux disease without esophagitis 486735030 K21.9 stable on medication Pain in right hand 30031 22756 52864 M79.641 will fu with hand, middle finger DIP joint after fall [id number] Karsten Dodge [facility] [address] [facility], [place] [address] 02/15/2023 10:20:35 02/15/2023 14:35:01 Pain of left shoulder joint 7224593300 9890213 M25.512 declined interventi on at this timewill call if she needs ortho referral Pain of le ft knee region 6345435637 76687 M25.562 declined interventi on at this timewill call if she needs ortho referral Cough 77729602 R05.1 cont conservati ve measures Acute bronchitis 3975359 2 J20.8 start short 5 day course of augmentin [id number] Karsten Dodge [facility] Medicine [address] [facility] [address],[place] [address] 03/16/2023 13:22:14 03/16/2023 16:35:04 Active or passive immunization 583468825 Z23 sent in script for patient Adult heal th examination 652615331 Z00.00 BP excellent todayrecen t Bilateral vestibular neuronitis of inner ears 5018377206 837788 H81.23 fu with ENT Cough 72486475 R05.1 cont conservati ve measures Sinus headache 5516423 R 51.0 may add singulair for more benefit Chronic sinusitis 237204 00 J32.1 will have her switch to alt anti-hista mineagreed to try claritin Pain of le ft shoulder joint 8414541721 8699211 M25.512 declined interventi on at this timewill call if she needs ortho referralco nt pilates and yoga [id number] Karsten Dodge [facility] Medicine [address] [facility],[place] [address] 10/17/2023 16:10:35 10/18/2023 08:02:48 Cervical radiculopathy 98433572 M54.12 will monitor 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 will start on baclofen for msk spasms Vertigo 056026206 R42 discussed optionswil l monitor for now [id number] Karsten Dodge [facility] Medicine [address] [facility] [address],[place] [address] 03/20/2024 13:22:27 03/20/2024 14:19:12 Active or passive immunization 137125239 Z23 sent in script for patient Adult [facility] th examination 744839258 Z00.00 BP excellent today Depression screening 171 401970 Z13.31 stable Constipation 28811438 K5 9.09 can use miralax to help stay more regular [id number] Karsten Dodge [facility] Medicine [address] [facility] [address] [address] 02/01/2025 13:23:31 02/01/2025 16:29:12 Pre-surgery evaluation 360710696 Z01.818 The patient was seen in the office today for pre-op evaluation . All medical conditions on patient's problem list were addressed and are currently stable, no interventi on needed at this time. Based on history and physical performed, the patient is cleared for surgery. Chronic rhinitis 4492514 6 J31.0 trial sing81[employer] [id number] Karsten Dodge, [facility] Medicine [address] [facility],[place] [address] 03/27/2025 11:02:04 03/27/2025 12:49:52 Active or passive immunization [id number] Z23 Hyperlipidemia [id number] E78.2 Well adult [id number] Z00 .00 actually dong great and is feeling quite [place] issues except for the itching sensation Generalized pruritus [id number] L29.9 will need lab work Onychomyco sis of toenails [id number] B35.1 Bilateral cramp of muscle of lower limbs [id number] R25.2 Generalize d osteoarthritis [id number] M15.9 Health Concerns Section Related Observation LastModified by Organization Detai ls LastModified Time None Recorded Concern Status LastModified by Organization Details LastModified Time None Recorded Advance Directives Directive None Recorded Payers Encounter Date Sequence Insurance Name Policy Number Policy Alaniz Covered Member ID Alaniz Member ID Guarantor Name 03/16/2023 1 [place] PPO) [id number] Analy Mcgraw Hummel [id number] Analy Hummel 10/17/2023 1 [place] PPO) [id number] Analy Mcgraw Hummel [id number] Analy Hummel 03/20/2024 1 [place] PPO) [id number] Analy Mcgraw Hummel [id number] Analy Hummel 02/01/2025 1 [place] PPO) [id number] Analy Mcgraw Hummel [id number] Analy Shaheed 03/27/2025 1 [place] PPO) [id number] Analy Mcgraw Shaheed [id number] Analy Shaheed Notes Date Note Type Note Provider Name and Address Organization Details Recorded Time 03/16/20 23 text/htm l Annual WellnessReported bypatient.Diet and Nutrition:healthy diet; discussed vitamin and supplement use; discussed portion control; discussed maintaining calcium balance; discussed diet improvement Fracture Risk:no history of fractures; no recent explained fracture; no sudden unexplained fractures; no previous musculoskeletal injuries Physical Activity:exercises on a regular basis; recent increase in physical activity; good physical condition; discussed weightbearing activities; discussed exercise habits; very physically active walks, yoga, pilates Additional Lifestyle Factors:no tobacco use; no alcohol [...] disorders Hearing:no loss of hearing Vision:no vision problems the patient is recovering from pneumoniapatient recovered on abx on Tuesday she developed dry barking coughrelated to allergiesshe uses zyrtecdoes have a humdifier but typically shuts it off during summerher cough today is okay BP is excellent the patient is having on and off vertigo and headachesthe patient thought maybe it could anxiety relatedthe patient has been having nausea and balancelast couple of years this has been on going the patient notices with yoga it worsens itthe patient reports that allergies do not trigger it the patient has had LNs swollen on the left side, cervical chain the patient is having pressure in the frontal lobe; her glasses can bother herpossible sinus headaches irene. with her h/x of vestibular neuronitis needs to hydrate more per patientthe patient reports that she does getting itching of her full body before she falls asleep no blurred vision or vision changesno increase in floaters will needs eye exam soon the patient had her cyst in her right ear removedsees ENT every 6 mos > saw a couple weeks ago worse headache and sinuses since the surgeryshe does have h/x of deviated septum I think she has a sinus headaches irene after surgeryalso with her balance issues did injury her de like a year agothe patient has since had mild numbness and tingling [address] [place], [address], [facility], [facility] 03/16/2023 14:29:27 10/17/20 23 text/htm l c/o neck pain the patient reports she has been ongoing bilateral shoulder pain into cervical spine painreports muscle pain and tightnessreports that she woke up a week ago she couldn't move her upper body due to the pain in her neck and shoulders originally thought it was sleeping wrong but progressed throughout the weekend, started moving into shoulder and neckhad loss of ROM with her neck, torticollis will set up with msk spasms discussed options for vertigo if she needs them [address] [place], [address], [facility], [facility] 10/17/2023 16:54:57 03/20/20 24 text/htm l Annual WellnessReported bypatient.Diet and Nutrition:healthy diet; discussed vitamin and supplement use; discussed portion control; discussed maintaining calcium balance; discussed diet improvement Fracture Risk:no history of fractures; no recent explained fracture; no sudden unexplained fractures; no previous musculoskeletal injuries Physical Activity:exercises on a regular basis; recent increase in physical activity; good physical condition; discussed weightbearing activities; discussed exercise habits Additional Lifestyle Factors:no tobacco use; no alcohol [...] disorders Hearing:no loss of hearing Vision:no vision problems; within the last 6 mosNotes:last dentist 2 weeks ago the patient reports her left knee has gotten worse with bending, gets stiff easilystill doing her yoga and walking consistentlyaches more than it usually does and certain positions in yoga bother herthe patient reports her shoulder also feel more sore to the touch takes ibuprofen and uses topical cream which can help the patient wants to try aleve insteadgave her to go aheadthe patient does not want to get an injection into her kneedoes not want to use a bracesuggested ice, rest and aleve for the discomfortdoes not want an ortho appt the patient states she notices the weather bothers her [address] [place], [address], [facility], [facility] 03/20/2024 14:08:53 02/02/20 25 text/htm l Pre-OpReported bypatient.Surgery to be Performed:right eye cataract with [facility] Context/Condition Being Addressed:cataract removal Location:right eye Severity:moderate Risk Factorsno cognitive impairment; no functional impairment; no malnutrition; no frailty; able to climb a flight of stairs (exercise capacity>4 METS); no obstructive sleep apnea; non-smoker; no alcohol misuse; no illicit drug use; no chronic cardiopulmonary condition; not obese Anesthesia hx:no hx of anesthesia complications; no allergy to anesthetic agents; no family history of anesthesia complications Functional Ability:able to walk up stairs; able to perform heavy work around the house; no difficulty walking up hills; able to walk 4 mph Post-Op Support:adequate assistance at home; one of her children will bring him [address] [place], [address], [facility], [facility] 02/01/2025 13:54:07 03/27/20 25 text/htm l Annual WellnessReported bypatient.Diet [...] pancreatitis; no stroke Karsten Dodge, DO [address] [facility], [place], [address], [facility] 03/27/2025 11:59:29 OBGyn Episode No OBEpisode recorded.
[2025-03-27 18:07] LABS: MANUAL DIFF FLAG NO
[2025-03-27 18:22] LABS: Hematocrit 27.8 % (37.0-47.0); Hemoglobin 8.3 g/dl (12.0-16.0); Lymphocytes Percent Auto 32.2 % (20-40); Mean Corpuscular HGB Conc 29.9 g/dl (31.0-35.0); Mean Corpuscular Hemoglobin 20.6 pg (27.0-33.0); Mean Corpuscular Volume 69.2 fL (80.0-98.0); Mean Platelet Volume 10.7 fL (9.4-12.3); Neutrophils Percent Auto 47.1 % (45-73); Platelet Count 246 X10*3/uL (160-400); Red Blood Count 4.02 X10*6/uL (4.20-5.50); Red Cell Distribution Width 19.1 % (11.0-16.0); White Blood Count 4.6 X10*3/uL (4.8-10.8)
[2025-03-27 18:23] LABS: Basophils Absolute Auto 0.1 X10*3/uL (0.0-0.2); Basophils Percent Auto 1.3 % (0-2); Eosinophils Absolute Auto 0.2 X10*3/uL (0.0-0.4); Eosinophils Percent Auto 4.1 % (0-4); Lymphocytes Absolute Auto 1.5 X10*3/uL (1.2-4.9); Monocytes Absolute Auto 0.7 X10*3/uL (0.1-1.2); Monocytes Percent Auto 15.3 % (2-11); Neutrophils Absolute Auto 2.2 x10*3/uL (2.0-8.3)
[2025-03-27 18:50] LABS: Alanine Aminotransferase 11 U/L (0-31); Albumin Level 3.9 g/dL (3.5-5.0); Alkaline Phosphatase 80 U/L (39-117); Anion Gap 11 (12-20); Aspartate Amino Transferase 30 U/L (5-31); Bilirubin Total 0.3 mg/dL (0.0-1.0); Blood Urea Nitrogen 18 mg/dL (9-16); C Reactive Protein < 0.04 mg/dL (< or = 0.50); Calcium 9.2 mg/dL (8.4-10.2); Carbon Dioxide 25 mmol/L (22-29); Chloride 109 mmol/L (96-108); Estimated Glomerular Filt Rate 54; Glucose Random 82 mg/dL (60-115); Iron 15 mcg/dL (30-160); Magnesium 2.1 mg/dL (1.6-2.6); Percent Iron Saturation 4 % (15-50); Potassium 4.8 mmol/L (3.3-5.1); Sodium 140 mmol/L (135-145); Total Iron Binding Capacity 394 mcg/dL (228-428); Unsaturated Iron Binding 379 ug/dL
[2025-03-27 18:55] LABS: Ferritin 13 ng/mL (10-250)
[2025-03-27 19:00] LABS: Vitamin B12 333 pg/mL (200-900)
[2025-03-27 19:10] LABS: Erythrocyte Sedimentation Rate 25 MM/HR (0-20)
== END 2025-03-27 12:01 | disposition home or self-care (01) ==
LOC: HO.MANLDS 12:00
PROVIDERS: Visit Provider Internal Medicine
DX: L29.9 Pruritus, unspecified (principal); R25.2 Cramp and spasm
CPT/HCPCS: 36415; 80053; 82607; 82728; 83540; 83735; 85025; 85652; 86140